=== PATIENT | female | born 1995 | race African-American/Black ===

== ENCOUNTER 2022-04-14 09:26 | Emergency (ER) | payer MEDICAID ==
[~2022-04-14] VITALS: Ht 167.6 cm; Wt 74.8 kg
[2022-04-14 09:32] VITALS: BP_SYST 166
[2022-04-14] MEDS ORDERED: LORazepam 2 MG/ML VIAL IVP ONE (10:00)
[2022-04-14] MEDS ORDERED: NACL 0.9% 1,000 ML IV ONE (10:00)
[2022-04-14 10:06] LABS: BASOPHILS % (AUTO) 0.3 % (0.0-2.0); EOSINOPHILS # (AUTO) 0.1 K/uL (0.0-0.4); EOSINOPHILS % (AUTO) 0.6 % (0.0-4.0); HEMATOCRIT 39.1 % (36-48); HEMOGLOBIN 13.1 g/dL (12.0-16.0); LYMPHOCYTES # (AUTO) 2.2 K/uL (1.0-5.5); LYMPHOCYTES % (AUTO) 21.2 % (20.5-51.5); MEAN CORPUSCULAR HEMOGLOBIN 30 pg (27-31); MEAN CORPUSCULAR HGB CONC 34 % (32-36); MEAN CORPUSCULAR VOLUME 90 fL (79.0-98.0); MONOCYTES # (AUTO) 0.4 K/uL (0.0-1.0); MONOCYTES % (AUTO) 3.5 % (1.7-9.3); NEUTROPHILS # (AUTO) 7.9 K/uL (1.8-7.7); NEUTROPHILS % (AUTO) 74.4 % (40.0-70.0); PLATELET COUNT (AUTO) 321 K/uL (130-430); RED BLOOD CELL COUNT(AUTO) 4.36 MIL/uL (4.2-6.2); RED CELL DISTRIBUTION WIDTH 13.9 % (9.0-15.0); WHITE BLOOD COUNT (AUTO) 10.5 K/uL (4.8-10.8)
[2022-04-14 10:17] LABS: ANION GAP 15 (5-15); CALCIUM 8.8 mg/dL (8.4-11.0); CHLORIDE 103 mmol/L (98-107); CREATININE 0.99 mg/dL (0.55-1.30); GLUCOSE 124 mg/dL (70-99); UREA NITROGEN, BLOOD 7 mg/dL (8-21)
[2022-04-14 10:20] LABS: GFR AFRICAN AMERICAN 86 mL/min (>90)
[2022-04-14 10:23] LABS: ALANINE AMINOTRANSFERASE 123 U/L (12-78); ALBUMIN 3.2 g/dL (3.4-4.8); ASPARTATE AMINOTRANSFERASE 57 U/L (10-37); TOTAL BILIRUBIN 0.2 mg/dL (0.0-1.0)
[2022-04-14 10:24] LABS: ALCOHOL, BLOOD < 3 mg/dL (<10)
[2022-04-14] MEDS ORDERED: MIDAZOLAM HCL 5 MG/5 ML VIAL IVP ONE (11:00)
[2022-04-14] MEDS ORDERED: ETHY1TAB (17:55)
== END 2022-04-14 14:29 | disposition home or self-care (01) ==
LOC: SED 09:26
DX: R56.9 Unspecified convulsions (principal); R20.2 Paresthesia of skin; Z79.899 Other long term (current) drug therapy
CPT/HCPCS: 99285; 70551; 96374; 70450; 96361; 80053; 85025; 84484; 36415; 93005; 76376; G0482; J2060; J7030

== ENCOUNTER 2022-04-14 14:43 | Inpatient (IN) | payer MEDICAID ==
[~2022-04-14] VITALS: Ht 160 cm; Wt 110.7 kg
--- NOTE | 2022-04-14 15:10 | NUR ---
Patient to [facility] for evaluation.
[2022-04-14 15:11] VITALS: BP_SYST 136
--- NOTE | 2022-04-14 15:11 | NUR ---
PATIENT BROUGHT IN WITH SIGNIFICANT OTHER AMBULATORY AOX4. PATIENT WAS DISCHARGED VERY RECENTLY FROM ED AFTER A SEIZURE WORK UP. PATIENT REPORTS SHE HAD ANOTHER SEIZURE AFTER BEING DISCHARGED FROM THE ED. PATIENT REPORT HER "WHOLE RIGHT SIDE WAS TENSE AND SHAKING. SIGNIFICANT OTHER COULD ASK QUESTIONS AND SHE RESPONDED THAT SHE NEEDED TO GO BACK TO THE ED." DENIES ANY PAIN.
--- NOTE | 2022-04-14 15:18 | NUR ---
ER at bedside examining patient.
--- NOTE | 2022-04-14 15:22 | NUR ---
PATIENT HAD WITNESSED "SEIZURE" PATIENT IS YELLING AND KICKING WALL SCREAMINIG IN PAIN . SPEAKING FULL SENTENCES AND ABLE TO ANSWER QUESTIONS APPROPRIATELY. SIGNIFICANT OTHER STATES THIS IS A SEIZURE. LEFT LEG IS TENSE AND SHAKING. MD AT BEDSIDE. NEW ORDERS PLACED IN CHART.
[2022-04-14] MEDS ORDERED: NACL 0.9% 1,000 ML IV ONE (15:30)
[2022-04-14] MEDS ORDERED: LORazepam 2 MG/ML VIAL IVP ONE (15:30)
[2022-04-14] MEDS ORDERED: KETOROLAC TROMETHAMINE 30 MG VIAL IVP ONE (15:30)
--- NOTE | 2022-04-14 15:30 | NUR ---
# 20 gauge angiocath placed to LAC. Use of asceptic technique. Opsite placed over site. Blood return noted. Blood for lab drawn from site. Flushed with 10 cc of normal saline. No evidence of infiltration noted. Patient tolerated well.
[2022-04-14] MEDS ORDERED: KETOROLAC TROMETHAMINE 30 MG VIAL ONE (15:34)
[2022-04-14 16:25] LABS: FREE T4 (FREE THYROXINE) 1.2 ng/dl (0.8-1.5); THYROID STIMULATING HORMONE 0.79 uIu/mL (0.36-3.74)
[2022-04-14] MEDS ORDERED: levETIRAcetam 1,500 MG in NS 85 ML IV ONE (16:30)
--- NOTE | 2022-04-14 16:45 | NUR ---
# 16 FR In and Out catheter with use of sterile technique. Immediate return of 75 ml YELLOW urine noted. Urine sample collected and sent to lab. Pt tolerated procedure WELL Patient unable to toilet self.
[2022-04-14 17:00] LABS: BILIRUBIN,URINE NEGATIVE (NEGATIVE); BLOOD, URINE NEGATIVE (NEGATIVE); CLARITY/URINE CLEAR (CLEAR); COLOR,URINE YELLOW (YELLOW); GLUCOSE,URINE NEGATIVE (NEGATIVE); KETONES,URINE 1+ (NEGATIVE); LEUKOCYTE ESTERASE ,URINE NEGATIVE (NEGATIVE); NITRITE, URINE NEGATIVE (NEGATIVE); PH,URINE 6.5 (5.0-8.0); PROTEIN URINE TRACE (NEGATIVE); UROBILINOGEN,URINE 0.2 (0.2-1.0)
--- NOTE | 2022-04-14 17:16 | NUR ---
COVID SWAB OBTAINED
[2022-04-14 17:19] LABS: BACTERIA,URINE FEW /HPF (None Seen); FINE GRANULAR CASTS,URINE 0-10 /LPF (None Seen); MUCUS,URINE 2+ /LPF (None Seen); OTHER CASTS, URINE WBC CASTS 1+ /LPF (None Seen); RBC,URINE NONE SEEN /HPF (0-3)
[2022-04-14 17:21] LABS: BARBITURATE, URINE NEGATIVE (NEG <=200); CANNABINOID, URINE NEGATIVE (NEG <=50); COCAINE, URINE NEGATIVE (NEG <=150); METHAMPHETAMINES SCREEN,URINE NEGATIVE (NEG <=500); OPIATE, URINE NEGATIVE (NEG <=100); PHENCYCLIDINE SCREEN,URINE NEGATIVE (NEG <=25); UR TRICYCLIC ANTIDEPRESSANTS NEGATIVE (NEG <=300); URINE AMPHETAMINE NEGATIVE (NEG <=500); URINE METHADONE NEGATIVE (NEG <=200); URINE OXYCODONE SCREEN NEGATIVE (NEG <=100); URINE PROPOXYPHENE SCREEN NEGATIVE (NEG <=300)
[2022-04-14 17:22] LABS: BENZODIAZEPINE, URINE POSITIVE (NEG <=150)
--- NOTE | 2022-04-14 17:23 | NUR ---
DR. STONE at bedside examining patient.
[2022-04-14] MEDS ORDERED: LORazepam 2 MG/ML VIAL IVP PRN (17:30)
--- NOTE | 2022-04-14 17:54 | NUR ---
Admit bed requested Patient will be admitted to care of ,. Admitted to TELEMETRY unit. Diagnosis NEW ONSET SEIZURES Inpatient (Yes or No) Y Observation (Yes or No) N Orientation concerns or request close to nursing station (Yes or No) N Covid Status PENDING On vent or bipap N Isolation requirements N Needs a sitter N From Home (Yes or if No enter name of facility) Y Requires Dialysis (Yes or No) Med Rec Completed (Yes of No) Y
[2022-04-14] MEDS ORDERED: ETHY1TAB (17:55)
--- NOTE | 2022-04-14 19:53 | NUR ---
Transfer to TELEMETRY via ACLS protocol. Licensed nurse present. IV present no signs or symptoms of infiltration.
[2022-04-14 20:10] VITALS: BP_SYST 128
[2022-04-14] MEDS: ENOXAPARIN SODIUM 40 MG/0.4 ML SYRINGE SUBCUT SCH (21:45)
[2022-04-14] MEDS: levETIRAcetam 500 MG TABLET PO SCH (21:45)
--- NOTE | 2022-04-14 22:44 | NUR ---
PT MOTHER CALLED AND WANTS TO BE UPDATED YASMIN HAYWARD [phone]
[2022-04-15] VITALS: BP_SYST 132
--- NOTE | 2022-04-15 01:40 | NUR ---
Consultation Paged Reason for Consultation: New onset seizure Was consult called: Y Person who was notified: Dr. Escobar, as per ER notes Consulting Physician: Javi Melgar Ordering Physician: Dr. Figueroa
[2022-04-15 06:53] LABS: BASOPHILS % (AUTO) 0.4 % (0.0-2.0); EOSINOPHILS % (AUTO) 0.5 % (0.0-4.0); HEMATOCRIT 34.2 % (36-48); HEMOGLOBIN 11.7 g/dL (12.0-16.0); LYMPHOCYTES # (AUTO) 2.4 K/uL (1.0-5.5); MEAN CORPUSCULAR HEMOGLOBIN 30 pg (27-31); MEAN CORPUSCULAR HGB CONC 34 % (32-36); MEAN CORPUSCULAR VOLUME 88 fL (79.0-98.0); MONOCYTES # (AUTO) 0.6 K/uL (0.0-1.0); MONOCYTES % (AUTO) 6.3 % (1.7-9.3); NEUTROPHILS # (AUTO) 5.7 K/uL (1.8-7.7); NEUTROPHILS % (AUTO) 65.8 % (40.0-70.0); PLATELET COUNT (AUTO) 285 K/uL (130-430); RED BLOOD CELL COUNT(AUTO) 3.88 MIL/uL (4.2-6.2); RED CELL DISTRIBUTION WIDTH 13.9 % (9.0-15.0); WHITE BLOOD COUNT (AUTO) 8.7 K/uL (4.8-10.8)
[2022-04-15 07:20] LABS: ALBUMIN 2.6 g/dL (3.4-4.8); CALCIUM 8.2 mg/dL (8.4-11.0); CREATININE 0.87 mg/dL (0.55-1.30); TOTAL BILIRUBIN 0.3 mg/dL (0.0-1.0)
[2022-04-15 08:53] VITALS: BP_SYST 139
[2022-04-15] MEDS: levETIRAcetam 500 MG TABLET PO SCH ×2 (09:16→22:04)
[2022-04-15] MEDS: ACETAMINOPHEN 325 MG TABLET PO PRN ×2 (09:17→18:00)
[2022-04-15 14:51] VITALS: BP_SYST 136
[2022-04-15] MEDS ORDERED: ONDANSETRON HCL 4 MG/2 ML VIAL IVP PRN (17:30)
[2022-04-15 18:11] VITALS: BP_SYST 126
--- NOTE | 2022-04-15 19:49 | NUR ---
DR. KELLEY CAME BY EXAMINED PATIENT AND WROTE ORDERS FOR TOMORROW. MD WANTS RN TO REPORT IF PATIENT MOVES RIGHT HAND WHILE SLEEP TONIGHT AND ALSO SHE'S ABLE TO USE RIGHT HAND WHILE TEXTING.
[2022-04-15 20:00] VITALS: BP_SYST 125
[2022-04-15] MEDS: ENOXAPARIN SODIUM 40 MG/0.4 ML SYRINGE SUBCUT SCH (22:04)
[2022-04-16 00:28] VITALS: BP_SYST 131
[2022-04-16] MEDS: ACETAMINOPHEN 325 MG TABLET PO PRN (01:04)
--- NOTE | 2022-04-16 06:00 | NUR ---
PT HAS NOT BEEN ABLE TO MOVE R ARM. PT HAS SOME MOVEMENT IN L LEG BUT UNABLE TO MOVE L FOOT
[2022-04-16 07:02] LABS: BASOPHILS % (AUTO) 0.4 % (0.0-2.0); EOSINOPHILS % (AUTO) 0.5 % (0.0-4.0); HEMATOCRIT 38.5 % (36-48); HEMOGLOBIN 13.1 g/dL (12.0-16.0); LYMPHOCYTES # (AUTO) 2.2 K/uL (1.0-5.5); LYMPHOCYTES % (AUTO) 28.2 % (20.5-51.5); MEAN CORPUSCULAR HEMOGLOBIN 30 pg (27-31); MEAN CORPUSCULAR HGB CONC 34 % (32-36); MEAN CORPUSCULAR VOLUME 88 fL (79.0-98.0); MONOCYTES # (AUTO) 0.5 K/uL (0.0-1.0); MONOCYTES % (AUTO) 6.2 % (1.7-9.3); NEUTROPHILS % (AUTO) 64.7 % (40.0-70.0); PLATELET COUNT (AUTO) 301 K/uL (130-430); RED BLOOD CELL COUNT(AUTO) 4.38 MIL/uL (4.2-6.2); RED CELL DISTRIBUTION WIDTH 13.9 % (9.0-15.0); WHITE BLOOD COUNT (AUTO) 7.7 K/uL (4.8-10.8)
[2022-04-16 07:11] LABS: CALCIUM 8.7 mg/dL (8.4-11.0); CREATININE 0.82 mg/dL (0.55-1.30)
[2022-04-16 08:54] VITALS: BP_SYST 117
[2022-04-16] MEDS: levETIRAcetam 500 MG TABLET PO SCH ×2 (09:49→21:00)
[2022-04-16 11:37] VITALS: BP_SYST 127
--- NOTE | 2022-04-16 11:38 | NUR ---
Patient has a headache 11/11, offered Tylenol but patient refused. Patient stated "Tylenol does not work me." She takes Ibuprofen 800mg over the counter. Called Dr. Figueroa and informed of patient's request. Order received. Order made and carried out. Patient made aware.
[2022-04-16] MEDS: IBUPROFEN 800 MG TABLET PO PRN ×2 (12:03→21:00)
--- NOTE | 2022-04-16 15:02 | NUR ---
Dietitian Recommendations * Continue regular diet * Ordered- Ensure BID (provides 700 kcal and 26 g PRO) * Consider MVI for micronutrient coverage RAAD YUAN, HEBERT Please refer to RD Assessment for further details RAAD YUAN, HEBERT Addendum: 04/16/22 at [address] Amended: Links added.
--- NOTE | 2022-04-16 16:01 | NUR ---
Dr. Figueroa made rounds and saw patient. Received order for PT/OT eval and treatment. Patient's a/o x4, made aware of the order and updated on POC.
[2022-04-16 18:15] VITALS: BP_SYST 126
[2022-04-16 20:00] VITALS: BP_SYST 133
[2022-04-16] MEDS: ENOXAPARIN SODIUM 40 MG/0.4 ML SYRINGE SUBCUT SCH (21:00)
[2022-04-17] VITALS: BP_SYST 118
--- NOTE | 2022-04-17 | NUR ---
PT ABLE TO TURN. PT HAS MINIMAL MOVEMENT IN R ARM. PT UNABLE TO MOVE L FOOT
[2022-04-17 08:00] VITALS: BP_SYST 135
[2022-04-17] MEDS: levETIRAcetam 500 MG TABLET PO SCH ×2 (09:39→21:14)
[2022-04-17 11:57] VITALS: BP_SYST 126
--- NOTE | 2022-04-17 13:00 | NUR ---
PATIENT REPORTS INCREASED NUMBNESS IN LEFT LEG, PROVIDED A BED BATH AND PATIENT UNABLE TO ASSIST WITH CARE, MD MADE AWARE
[2022-04-17 16:16] VITALS: BP_SYST 129
[2022-04-17] MEDS: IBUPROFEN 800 MG TABLET PO PRN (17:35)
--- NOTE | 2022-04-17 17:35 | NUR ---
HEADACHE Patient complained of a headache 3/10, PRN Motrin to be administered.
[2022-04-17 20:00] VITALS: BP_SYST 124
[2022-04-17] MEDS: ENOXAPARIN SODIUM 40 MG/0.4 ML SYRINGE SUBCUT SCH (21:14)
[2022-04-18 00:45] VITALS: BP_SYST 123
[2022-04-18 08:36] VITALS: BP_SYST 139
[2022-04-18] MEDS: levETIRAcetam 500 MG TABLET PO SCH (10:21)
[2022-04-18 11:35] VITALS: BP_SYST 129
[2022-04-18 16:38] VITALS: BP_SYST 132
[2022-04-18] MEDS: IBUPROFEN 800 MG TABLET PO PRN (17:08)
[2022-04-18 20:00] VITALS: BP_SYST 116
[2022-04-18] MEDS ORDERED: levETIRAcetam 500 MG TABLET PO ONE (21:00)
[2022-04-18] MEDS: DOCUSATE SODIUM 100 MG CAPSULE PO SCH (21:25)
[2022-04-18] MEDS: ENOXAPARIN SODIUM 40 MG/0.4 ML SYRINGE SUBCUT SCH (21:25)
[2022-04-19 04:00] VITALS: BP_SYST 127
[2022-04-19 06:58] LABS: BASOPHILS % (AUTO) 0.6 % (0.0-2.0); EOSINOPHILS # (AUTO) 0.1 K/uL (0.0-0.4); EOSINOPHILS % (AUTO) 1.5 % (0.0-4.0); HEMATOCRIT 39.6 % (36-48); HEMOGLOBIN 13.5 g/dL (12.0-16.0); LYMPHOCYTES # (AUTO) 2.1 K/uL (1.0-5.5); LYMPHOCYTES % (AUTO) 31.9 % (20.5-51.5); MEAN CORPUSCULAR HEMOGLOBIN 30 pg (27-31); MEAN CORPUSCULAR HGB CONC 34 % (32-36); MEAN CORPUSCULAR VOLUME 88 fL (79.0-98.0); MONOCYTES # (AUTO) 0.4 K/uL (0.0-1.0); MONOCYTES % (AUTO) 6.2 % (1.7-9.3); NEUTROPHILS % (AUTO) 59.8 % (40.0-70.0); PLATELET COUNT (AUTO) 352 K/uL (130-430); RED BLOOD CELL COUNT(AUTO) 4.51 MIL/uL (4.2-6.2); RED CELL DISTRIBUTION WIDTH 13.7 % (9.0-15.0); WHITE BLOOD COUNT (AUTO) 6.7 K/uL (4.8-10.8)
--- NOTE | 2022-04-19 07:42 | NUR ---
CONSULTATION: REASON FOR CONSULT: CONFUSION CONSULTING PHYSICIAN: DANIELLE LUGO ORDERED BY: CHASE SPOKE WITH DAVID [phone]
[2022-04-19 07:43] LABS: ALBUMIN 3.1 g/dL (3.4-4.8); CALCIUM 8.9 mg/dL (8.4-11.0); CREATININE 0.97 mg/dL (0.55-1.30); TOTAL BILIRUBIN 0.5 mg/dL (0.0-1.0)
[2022-04-19 08:00] VITALS: BP_SYST 132
--- NOTE | 2022-04-19 08:00 | NUR ---
OPENING NOTES PATIENT IS AOX4. NO SS OF DISTRESS NOTED. BREATHING IS EVEN AND NONLABORED, ON ROOM AIR. IV TO LFA. PATENT. PATIENT DENIES PAIN. DENIES SOB. VITAL SIGNS OBTAINED, DOCUMENTED. BED IS LOCKED, ALARM ON, AND AT LOWEST POSITION. SIDE RAILS PADDED. CALL LIGHT WITHIN REACH.
[2022-04-19] MEDS: DOCUSATE SODIUM 100 MG CAPSULE PO SCH ×2 (09:00→21:56)
--- NOTE | 2022-04-19 09:12 | NUR ---
NOTES PATIENT REFUSED MEDICATION COLACE. DENIES PAIN. NO SOB NOTED. BREATHING IS EVEN AND NONLABORED, ON ROOM AIR. IV PATENT. BED IS LOCKED, ALARM ON, AND AT LOWEST POSITION. BED SIDE RAILS ARE PADDED. CALL LIGHT WITHIN REACH.
[2022-04-19 11:22] VITALS: BP_SYST 135
--- NOTE | 2022-04-19 14:00 | NUR ---
Notes Spoke to Dr. Mai (psych). to have telepsych consult. Number is [phone]. Addendum: 04/19/22 at 1736 by Simin Linton LVN Notes Spoke to Dr. Mai (psych). to have telepsych consult. Number is [phone]. ............................................................................................ ......................... unable to connect call, Patient left for MRI. Called Dr. Mai and informed that patient went for procedure. stated to call him back when patient available.
[2022-04-19] MEDS ORDERED: GADOTERATE MEGLUMINE 7.5 MMOL/15 ML VIAL IV ONE ×2 (14:23→14:25)
[2022-04-19] MEDS ORDERED: GADOBENATE DIMEGLUMINE 529 MG/ML, 5 ML VIAL IV ONE (14:24)
--- NOTE | 2022-04-19 15:00 | NUR ---
Notes Called and spoke to Dr. Mai. aware patient ready for telepsych consult. stated not by computer at this time. Per MD, he would call back to start telepsych consult.
--- NOTE | 2022-04-19 15:59 | NUR ---
Request for FWW faxed to [facility] at [facility] phone [phone]/
[2022-04-19 16:28] VITALS: BP_SYST 130
--- NOTE | 2022-04-19 16:57 | NUR ---
notes Spoke with Dr. Peacock radiology, MRI showed intracranial bleed. Paged. Dr. Figueroa
--- NOTE | 2022-04-19 17:08 | NUR ---
Spoke to Dr. Figueroa. made aware of MRI results. Per , MILANA campa. Paged Dr. Escobar
--- NOTE | 2022-04-19 17:28 | NUR ---
spoke to Dr. Escobar. made aware of MRI results. New orders received.
--- NOTE | 2022-04-19 18:30 | NUR ---
Spoke to Dr. Escobar. made aware of CT results. No new orders.
--- NOTE | 2022-04-19 18:37 | NUR ---
Closing notes patient is resting in bed. No ss of distress noted. Breathing is even and nonlabored, on room air. No SOB noted. Patient denies headache. Denies severe pain. Patient is eating dinner. IV patent. All needs met. Side rails are padded. Bed is locked, alarm on, and at lowest position. Call light within reach.
[2022-04-19 20:00] VITALS: BP_SYST 128
[2022-04-19] MEDS: ENOXAPARIN SODIUM 40 MG/0.4 ML SYRINGE SUBCUT SCH (21:00)
[2022-04-20 04:00] VITALS: BP_SYST 121
--- NOTE | 2022-04-20 07:00 | NUR ---
Report received from mechanical detailer RN for continuity of care. Patient stable.
--- NOTE | 2022-04-20 07:19 | NUR ---
PHYSICAL THERAPY CO-SIGN The Physical Therapy Progress Notes documented by Forming Process Line Worker have been reviewed. Reviewed/Co-Signed by: Rishabh Vazquez Documentation Done by: PAWAN ISABEL PTA Addendum: 04/20/22 at 0720 by Rishabh Vazquez PT Amended: Links added.
[2022-04-20 07:46] VITALS: BP_SYST 134
[2022-04-20] MEDS: DOCUSATE SODIUM 100 MG CAPSULE PO SCH (09:00)
[2022-04-20 12:47] VITALS: BP_SYST 130
--- NOTE | 2022-04-20 14:32 | NUR ---
Spoke with ASTRID Rivers regarding patient's PT. Patient has [facility] and has to have prescription for outpatient PT prescription that she can physically take to place that accepts [facility]. New orders noted and carried.
--- NOTE | 2022-04-20 14:37 | NUR ---
Calling Dr. Figueroa and Dr. Escobar regarding patient d/c and if patient is stable for discharge. Also for physical PT prescription to d/c
--- NOTE | 2022-04-20 14:40 | NUR ---
Spoke with Dr. Escobar regarding patient discharge. Dr. Escobar, neuro, ok for patient to be discharged. Follow up at outpatient clinic in 1-3 weeks. Explained to patient what Dr. Escobar had explained regarding discharge instructions.
[2022-04-20 14:47] VITALS: BP_SYST 134
--- NOTE | 2022-04-20 15:17 | NUR ---
Called radiology requesting CD for patient prior to discharge.
[2022-04-20 16:05] VITALS: BP_SYST 132
--- NOTE | 2022-04-20 16:43 | NUR ---
Call placed to [facility] [phone] and spoke to the referral center about out patient PT for the patient. They stated they cannot take a referral from the hospitalist-the referral must come from the patient's PCP. The order for out patient PT was given to the patient. She was told to take the order to her PCP when she sees him, and he can make the referral to out patient PT at [facility]. She stated understanding of information given
--- NOTE | 2022-04-20 17:41 | NUR ---
Dr. Figueroa gave paper prescription of keppra 500 mg bid po. Patient aware.
--- NOTE | 2022-04-20 18:53 | NUR ---
Patient ready for discharge. All paperwork given. Patient IV removed. All belongings with patient. Patient ambulate with personal FWW. No distress noted. Patient assisted with OCTAVIO Latham and RN Frank from wheelchair to personal vehicle. Vital signs stable. Patient changed into regular clothes. Patient's family to pick patient up.
--- NOTE | 2022-04-21 07:27 | NUR ---
PHYSICAL THERAPY CO-SIGN The Physical Therapy Progress Notes documented by [employer] have been reviewed. Reviewed/Co-Signed by: Rishabh Vazquez Documentation Done by: PAWAN ISABEL PTA Addendum: 04/21/22 at 0727 by Rishabh Vazquez PT Amended: Links added.
== END 2022-04-20 18:45 | disposition home or self-care (01) | DRG 44 ==
LOC: SED 14:43 → STU 17:17 → SMU 04-18 22:04
PROVIDERS: ADMIT Family Medicine; ATTEND Family Medicine
PROC: 4A00X4Z Measurement of Central Nervous Electrical Activity, External Approach (ICD-10-PCS; principal; 2022-04-16)
DX: I61.9 Nontraumatic intracerebral hemorrhage, unspecified (principal); E44.0 Moderate protein-calorie malnutrition; G81.91 Hemiplegia, unspecified affecting right dominant side; E83.51 Hypocalcemia; F44.9 Dissociative and conversion disorder, unspecified; G40.909 Epilepsy, unspecified, not intractable, without status epilepticus; Z20.822 Contact with and (suspected) exposure to COVID-19; Z79.899 Other long term (current) drug therapy; Z68.41 Body mass index [BMI] 40.0-44.9, adult
CPT/HCPCS: 36415; 70450-TC; 70553; 76376; 80048; 80053; 80307; 81000; 82962; 83735; 84439; 84443; 84703; 85025; 93306; 95816; 96361; 96365; 96375; 97110-GP; 97112-GP; 97530-GP; 99285; A9575; A9577; G0378; J1650; J1885; J1953; J2060; J7030